=== PATIENT | female | born 1955 | race Caucasian/White ===

== ENCOUNTER → 2016-11-24 | Outpatient (CLI) | payer BC | LOC: RAD 18:20 | PROVIDERS: ATTEND Internal Medicine | DX: R91.1 Solitary pulmonary nodule (principal); J98.4 Other disorders of lung | CPT/HCPCS: 78815; A9552 ==

== ENCOUNTER → 2017-02-11 | Outpatient (CLI) | payer BC | LOC: RAD 18:35 | PROVIDERS: ATTEND Orthopaedic Surgery | DX: M25.511 Pain in right shoulder (principal) ==

== ENCOUNTER → 2018-06-19 | Day surgery (SDC) | payer BC ==
[~2018-06-19] MED LIST: LIDOCAINE 1% INJ-PF (10 MG/ML) 30 ML SDV ONE
--- NOTE | 2018-06-19 10:59 | RADIOLOGY REPORT (SQ) ---
EXAM DESCRIPTION: ARTHRO SHOULDER INJECTION; FLUORO/NEEDLE PLACEMENT COMPLETED DATE/TIME: 06/19/2018 10:32 am REASON FOR STUDY: PAIN IN LEFT SHOULDER M25.512 PAIN IN LEFT SHOULDER COMPARISON: None. FLUOROSCOPY TIME: 5 SECONDS 1 digital radiographic images saved to PACS. LIMITATIONS: None. PROCEDURE: Procedure, risks, benefits and alternatives explained to patient who then gave written c onsent. The left shoulder was marked and a time-out was called for correct marking verification. Ant erior entry site marked using fluoroscopic guidance. Shoulder prepped and draped using sterile techn ique. Local anesthesia achieved using 1% lidocaine injection. Hypodermic needle introduced into t he joint space under direct fluoroscopic visualization. Non-ionic contrast instilled to confirm intr a-articular position. Dilute gadolinium solution then injected. Needle removed and entry site cove red with sterile bandage. No immediate complications noted. TECHNIQUE: Digital images acquired during fluoroscopy and stored on PACS. Patient immediately taken to the MR suite for additional imaging. INJECTION LOCATION: Anterior left shoulder, at the glenohumeral joint. CONTRAST TYPE AND AMOUNT:1 mL of Isovue-300 was injected to confirm intra-articular needle placement followed by dilute Dotarem/Saline mixture. IMPRESSION: SUCCESSFUL NEEDLE PLACEMENT AND INJECTION FOR LEFT SHOULDER MR ARTHROGRAM USING ANTERIOR APPROACH. COMMENT: Quality ID 145: Final reports for procedures using fluoroscopy that document radiation exp osure indices, or exposure time and number of fluorographic images (if radiation exposure indices are not available) TECHNICAL DOCUMENTATION: JOB ID: [id number] [employer]- All Rights Reserved Reading location - IP/workstation name: [facility]
--- NOTE | 2018-06-19 10:59 | RADIOLOGY REPORT (SQ) ---
EXAM DESCRIPTION: ARTHRO SHOULDER INJECTION; FLUORO/NEEDLE PLACEMENT COMPLETED DATE/TIME: 06/19/2018 10:32 am REASON FOR STUDY: PAIN IN LEFT SHOULDER M25.512 PAIN IN LEFT SHOULDER COMPARISON: None. FLUOROSCOPY TIME: 5 SECONDS 1 digital radiographic images saved to PACS. LIMITATIONS: None. PROCEDURE: Procedure, risks, benefits and alternatives explained to patient who then gave written c onsent. The left shoulder was marked and a time-out was called for correct marking verification. Ant erior entry site marked using fluoroscopic guidance. Shoulder prepped and draped using sterile techn ique. Local anesthesia achieved using 1% lidocaine injection. Hypodermic needle introduced into t he joint space under direct fluoroscopic visualization. Non-ionic contrast instilled to confirm intr a-articular position. Dilute gadolinium solution then injected. Needle removed and entry site cove red with sterile bandage. No immediate complications noted. TECHNIQUE: Digital images acquired during fluoroscopy and stored on PACS. Patient immediately taken to the MR suite for additional imaging. INJECTION LOCATION: Anterior left shoulder, at the glenohumeral joint. CONTRAST TYPE AND AMOUNT:1 mL of Isovue-300 was injected to confirm intra-articular needle placement followed by dilute Dotarem/Saline mixture. IMPRESSION: SUCCESSFUL NEEDLE PLACEMENT AND INJECTION FOR LEFT SHOULDER MR ARTHROGRAM USING ANTERIOR APPROACH. COMMENT: Quality ID 145: Final reports for procedures using fluoroscopy that document radiation exp osure indices, or exposure time and number of fluorographic images (if radiation exposure indices are not available) TECHNICAL DOCUMENTATION: JOB ID: [id number] [employer]- All Rights Reserved Reading location - IP/workstation name: [facility]
--- NOTE | 2018-06-19 12:54 | RADIOLOGY REPORT (SQ) ---
EXAM DESCRIPTION: MRI LT UPPER JOINT WITH COMPLETED DATE/TIME: 06/19/2018 11:30 am REASON FOR STUDY: PAIN IN LEFT SHOULDER M25.512 PAIN IN LEFT SHOULDER COMPARISON: None. TECHNIQUE: Left shoulder images acquired and stored on PACS. Oblique coronal, oblique sagittal, and axial imaging to include fat sensitive sequences as T1, water sensitive sequences as FST2/STIR, and c ontrast sensitive sequences as FST1. LIMITATIONS: None. FINDINGS: JOINT DISTENTION: Adequate distention for interpretation. No intra-articular loose bodies . No leakage of intra-articular contrast into the subacromial/subdeltoid bursa BONE MARROW AND CORTEX: Normal. No significant osteophytes. No edema or defects. AC JOINT: Type II acromion. Mild acromioclavicular joint bony spurring. There is mild narrowing of t he subacromial space, and a small effusion in the subacromial/subdeltoid bursa without gadolinium. GLENOHUMERAL JOINT: No subluxation or dislocation. No focal chondral defects or reactive bone changes . ROTATOR CUFF: Mild increased intrinsic signal along the undersurface of the distal supraspinatus tend on best shown on sagittal image 12 and coronal image 12. infraspinatus, subscapularis are intact. LABRUM AND BICEPS LABRAL COMPLEX: Normal signal in the rotator interval without tear of the superior glenohumeral ligament. Intra-articular long head biceps tendon is thin and high in signal from tendi nopathy. Superior labrum intact. Distal biceps in normal anatomic location in bicipital groove. No p aralabral cysts. INFERIOR LABRAL COMPLEX: Bony glenoid and labrum intact. IGHL intact, but thickened. Question adhesi ve capsulitis. No paralabral cysts. ADJACENT SOFT TISSUES: No masses or nodes. OTHER: No other significant finding. IMPRESSION: Fluid in the subacromial/subdeltoid bursa without gadolinium indicating bursitis Mild tendinopathy distal supraspinatus without full-thickness tear Tendinopathy intra-articular long head biceps tendon, without superior labral tear Small axillary recess with thickening of the inferior glenohumeral ligament worrisome for adhesive ca psulitis TECHNICAL DOCUMENTATION: JOB ID: [id number] [employer]- All Rights Reserved Reading location - IP/workstation name: [facility]
== END ==
LOC: RAD 09:31
PROVIDERS: ATTEND Orthopaedic Surgery
DX: M25.512 Pain in left shoulder (principal)
CPT/HCPCS: 73222; 77002; 23350; A9576; J3490

== ENCOUNTER → 2020-11-10 | Outpatient (CLI) | payer BC ==
[~2020-11-10] MED LIST changes: +COVID-19 VACCINE (PFIZER)/PF 30 MCG/0.3 ML VIAL IM ONE; +EPINEPHRINE INJ/PF 1 MG/1 ML AMPULE IM PRN; -LIDOCAINE 1% INJ-PF (10 MG/ML) 30 ML SDV ONE
== END ==
LOC: EMPHEALTH 08:15
PROVIDERS: ATTEND Internal Medicine
DX: Z23 Encounter for immunization (principal)
CPT/HCPCS: 91300